=== PATIENT | female | born 1960 | race Caucasian/White ===

== ENCOUNTER → 2016-09-08 | Outpatient (REF) | payer BC ==
[~2016-09-08] MED LIST: ALBU17IN INH; IBUP200T45 PO
[2016-09-08 14:44] LABS: ANION GAP 9 MEQ/L (8-16); BLOOD UREA NITROGEN 11 MG/DL (7-18); CALCIUM LEVEL 8.7 MG/DL (8.5-10.1); CARBON DIOXIDE LEVEL 29 MEQ/L (21-32); CHLORIDE LEVEL 105 MEQ/L (98-107); CREATININE FOR GFR 0.84 MG/DL (0.55-1.02); GLOMERULAR FILTRATION RATE > 60.0 (>51); GLUCOSE, FASTING 130 MG/DL (70-105); SODIUM LEVEL 143 MEQ/L (136-145)
== END ==
LOC: M LAB REF 14:04
PROVIDERS: ATTEND Internal Medicine Cardiovascular Disease
DX: I10 Essential (primary) hypertension (principal); Z79.899 Other long term (current) drug therapy

== ENCOUNTER → 2017-03-26 | Outpatient (REF) | payer BC ==
[2017-03-26 12:17] LABS: ANION GAP 6 MEQ/L (8-16); BLOOD UREA NITROGEN 15 MG/DL (7-18); CALCIUM LEVEL 8.9 MG/DL (8.5-10.1); CARBON DIOXIDE LEVEL 29 MEQ/L (21-32); CHLORIDE LEVEL 105 MEQ/L (98-107); CREATININE FOR GFR 0.75 MG/DL (0.55-1.02); GLOMERULAR FILTRATION RATE > 60.0 (>51); GLUCOSE, FASTING 79 MG/DL (70-105); POTASSIUM SERUM 4.8 MEQ/L (3.5-5.1); SODIUM LEVEL 140 MEQ/L (136-145)
== END ==
LOC: M LABDRAW1 11:03
PROVIDERS: ATTEND Physician Assistant Medical
DX: R73.9 Hyperglycemia, unspecified (principal)

== ENCOUNTER → 2017-07-24 | Outpatient (REF) | payer BC | LOC: M LAB REF 13:16 | PROVIDERS: ATTEND Physician Assistant Medical | DX: R73.9 Hyperglycemia, unspecified (principal) ==

== ENCOUNTER → 2018-07-02 | Outpatient (REF) | payer BC | LOC: M LAB REF 15:40 | DX: J02.9 Acute pharyngitis, unspecified (principal) ==

== ENCOUNTER 2018-08-31 08:32 | Emergency (ER) | payer BC ==
[~2018-08-31] VITALS: Ht 162.6 cm; Wt 88.6 kg
[2018-08-31] MEDS ORDERED: LOSA25TA14 (08:45)
[2018-08-31 09:22] LABS: BASO # 0.1 10^3/uL (0.0-0.2); BASO % 0.5 % (0.0-1.0); EOS # 0.1 10^3/uL (0.0-0.50); EOS % 0.6 % (0.0-3.0); HEMATOCRIT 42.7 % (36.0-47.0); HEMOGLOBIN 14.3 g/dl (12.0-15.5); LYMPH # 1.6 10^3/uL (1.5-4.5); LYMPH % 15.1 % (24.0-44.0); MEAN CORPUSCULAR HEMOGLOBIN 30.1 pg (27.0-33.0); MEAN CORPUSCULAR HGB CONC 33.5 g/dl (32.0-36.5); MEAN CORPUSCULAR VOLUME 89.9 fl (80.0-96.0); MONO # 0.7 10^3/uL (0.0-0.8); MONO % 6.2 % (0.0-5.0); NEUTROPHILS # 8.4 10^3/uL (1.8-7.7); NEUTROPHILS % 77.2 % (36.0-66.0); PLATELET COUNT, AUTOMATED 306 10^3/uL (150-450); RED BLOOD COUNT 4.75 10^6/uL (4.00-5.40); WHITE BLOOD COUNT 10.9 10^3/uL (4.0-10.0)
--- NOTE | 2018-08-31 09:36 | REP ---
CT Head without contrast HISTORY: Visual change COMPARISON: None There is no intraparenchymal hemorrhage, acute infarct, mass or midline shift. The ventricular system is normal in appearance. There is no extra cerebral collection. There is no fracture. The visualized sinuses are clear. IMPRESSION: There is no intracranial lesion. Electronically Signed by Jeb Goncalves MD 08/31/2018 09:28 A
[2018-08-31 09:45] VITALS: BP 147/76
[2018-08-31] MEDS ORDERED: KETOROLAC 30 MG/ML VIAL (J1885) IV ONE (09:45)
[2018-08-31 09:51] LABS: CK-MB VALUE MASS < 1.0 NG/ML (<3.6); CPK CREATINE PHOSPHOKINASE 52 U/L (26-192); MB/CK RELATIVE INDEX 1.92 (< OR =4); TROPONIN I < 0.02 NG/ML (< 0.10)
[2018-08-31 09:52] LABS: ALBUMIN 3.8 GM/DL (3.2-5.2); ALT/SGPT 20 U/L (12-78); BILIRUBIN,TOTAL 0.3 MG/DL (0.2-1.0); BLOOD UREA NITROGEN 9 MG/DL (7-18); CALCIUM LEVEL 8.8 MG/DL (8.5-10.1); CARBON DIOXIDE LEVEL 27 MEQ/L (21-32); CHLORIDE LEVEL 105 MEQ/L (98-107); CREATININE FOR GFR 0.73 MG/DL (0.55-1.30); GLOMERULAR FILTRATION RATE > 60.0 (>51); GLUCOSE, FASTING 94 MG/DL (70-100); POTASSIUM SERUM 4.4 MEQ/L (3.5-5.1); SODIUM LEVEL 138 MEQ/L (136-145); TOTAL PROTEIN 6.9 GM/DL (6.4-8.2)
[2018-08-31 11:10] LABS: APPEARANCE, URINE CLEAR (CLEAR); BACTERIA, URINE AUTO NEGATIVE (NEGATIVE); BILIRUBIN, URINE AUTO NEGATIVE (NEGATIVE); BLOOD, URINE BLOOD NEGATIVE (NEGATIVE); COLOR, URINE YELLOW (YELLOW); GLUCOSE, URINE (UA) AUTO NEGATIVE (NEGATIVE); KETONE, URINE AUTO NEGATIVE (NEGATIVE); LEUKOCYTE ESTERASE, URINE AUTO NEGATIVE (NEGATIVE); MUCUS, URINE SMALL (NEGATIVE); NITRITE, URINE AUTO NEGATIVE (NEGATIVE); PROTEIN, URINE AUTO NEGATIVE (NEGATIVE); RBC, URINE AUTO 2 /HPF (0-3); SPECIFIC GRAVITY URINE AUTO 1.011 (1.002-1.035); SQUAMOUS EPITHELIAL CELL UR AU 1 /HPF (0-6); UROBILINOGEN, URINE AUTO 0.2 mg/dL (0.0-2.0); WBC, URINE AUTO 0 /HPF (0-3)
--- NOTE | 2018-08-31 18:35 | ECGEPIP ---
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
== END 2018-08-31 10:49 | disposition home or self-care (01) ==
LOC: M ED 08:32
DX: G43.109 Migraine with aura, not intractable, without status migrainosus (principal); I10 Essential (primary) hypertension; J44.9 Chronic obstructive pulmonary disease, unspecified; F17.210 Nicotine dependence, cigarettes, uncomplicated; Z79.899 Other long term (current) drug therapy
CPT/HCPCS: 36415; 70450; 80053; 81001; 82550; 82553; 84484; 85025; 93005; 96374; 99284; J1885

== ENCOUNTER → 2018-11-03 | Outpatient (CLI) | payer BC ==
[~2018-11-03] MED LIST changes: +LOSA25TA14
--- NOTE | 2018-11-03 18:43 | REP ---
Clinical: Amaurosis fugax. Technique: Kaye scale and color Doppler evaluation using linear high frequency transducer Findings: Two-dimensional kaye scale and color images demonstrate smooth intimal thickening along the bilateral common carotid arteries extending through the visualized internal and external carotid arteries. Small focus of calcified plaque identified at the left carotid bulb without significant stenosis. Color Doppler interrogation demonstrates normal arterial wave patterns and velocities with scattered spectral broadening. Normal flow direction is appreciated in the bilateral vertebral arteries. RIGHT (cm/s) LEFT (cm/s) ICA peak systolic velocity 106 119 ICA diastolic velocity 32.9 47.8 ECA peak systolic velocity 122 122 CCA peak systolic velocity 124 132 ICA/CCA ratio 0.85 0.90 Impression: No hemodynamically significant areas of narrowing or stenosis appreciated. Based on set standards narrowing falls within the less than 50% range. Electronically Signed by Hector Blackmon MD 11/03/2018 06:34 P
== END ==
LOC: M RAD 15:41
PROVIDERS: ATTEND Internal Medicine Cardiovascular Disease
DX: H53.8 Other visual disturbances (principal)

== ENCOUNTER → 2019-10-05 | Outpatient (CLI) | payer BC ==
--- NOTE | 2019-10-05 11:12 | REP ---
Clinical: Acute bronchitis . Comparison: 09/05/2014 . Technique: PA and lateral. Findings: The mediastinum and cardiac silhouette are normal. The lung hunt are clear and without acute consolidation, effusion, or pneumothorax. The skeletal structures are intact and normal. Impression: 1. No acute cardiopulmonary process. Electronically Signed by Hector Blackmon MD 10/05/2019 11:04 A
== END ==
LOC: M LAB 10:27 → M RAD 10:27
PROVIDERS: ATTEND Physician Assistant
DX: J20.9 Acute bronchitis, unspecified (principal)

== ENCOUNTER → 2020-03-13 | Outpatient (REF) | payer BC | LOC: M SFHCWAGY 09:31 | PROVIDERS: ATTEND Nurse Practitioner Women's Health | DX: Z12.72 Encounter for screening for malignant neoplasm of vagina (principal) | CPT/HCPCS: 87624; G0123 ==

== ENCOUNTER → 2020-04-11 | Outpatient (CLI) | payer BC ==
--- NOTE | 2020-05-03 10:41 | REPMRS ---
Patient History The patient states she had a clinical breast exam in February 2020. Patient is postmenopausal. Family history of ovarian cancer at age 38 in daughter. Digital Woman Screen Mammo: April 11, 2020 - Exam #: [id number] Bilateral CC and MLO view(s) were taken. Technologist: Lillie Chacon, Technologist No prior studies available for comparison. FINDINGS: There are scattered fibroglandular densities. The Volpara volumetric breast density category is: B. There is no evidence of dominant mass, architectural distortion, or grouped microcalcification typical of malignancy. 3-D tomosynthesis shows no additional findings. Assessment: BI-RADS/ACR category 1 mammogram. Negative Mammogram. Recommendation Routine screening mammogram of both breasts in 1 year (for women over age 40). This patient's Lifetime Breast Cancer RIsk is estimated at 5.2 %. This mammogram was interpreted with the aid of an FDA-approved computer-aided dectection system. Electronically Signed By: Juan Daniel MD 05/03/20 [id number]
== END ==
LOC: M WHC 09:33
PROVIDERS: ATTEND Nurse Practitioner Women's Health
DX: Z12.31 Encounter for screening mammogram for malignant neoplasm of breast (principal); Z78.0 Asymptomatic menopausal state; Z80.41 Family history of malignant neoplasm of ovary

== ENCOUNTER → 2020-06-15 | Outpatient (CLI) | payer BC ==
[2020-06-15 09:15] LABS: ALBUMIN 3.7 GM/DL (3.2-5.2); ALT/SGPT 17 U/L (12-78); AMYLASE 80 U/L (25-115); BILIRUBIN,TOTAL 0.4 MG/DL (0.2-1.0); BLOOD UREA NITROGEN 13 MG/DL (7-18); CALCIUM LEVEL 8.7 MG/DL (8.5-10.1); CARBON DIOXIDE LEVEL 30 MEQ/L (21-32); CHLORIDE LEVEL 106 MEQ/L (98-107); CREATININE FOR GFR 0.78 MG/DL (0.55-1.30); FERRITIN 88 NG/ML (8-252); FREE T4 1.11 NG/DL (0.76-1.46); GLOMERULAR FILTRATION RATE > 60.0 (>51); GLUCOSE, FASTING 81 MG/DL (70-100); IRON (FE) 113 UG/DL (50-170); LIPASE 211 U/L (73-393); NT-PRO BNP 47 PG/ML (<125); PERCENT SATURATION 35.1 % (13.2-45.0); POTASSIUM SERUM 4.7 MEQ/L (3.5-5.1); SODIUM LEVEL 139 MEQ/L (136-145); TOTAL IRON BINDING CAPACITY 322 UG/DL (250-450); TOTAL PROTEIN 6.9 GM/DL (6.4-8.2)
== END ==
LOC: M LAB 08:12
PROVIDERS: ATTEND Family Medicine
DX: R53.83 Other fatigue (principal); R06.02 Shortness of breath; R13.19 Other dysphagia

== ENCOUNTER → 2020-06-21 | Outpatient (CLI) | payer BC ==
[~2020-06-21] MED LIST changes: +ISOVUE-370 76% 100ML VIAL As Ordered ONE
--- NOTE | 2020-06-23 12:56 | REP ---
INDICATION: DYSPNEA, ABN WT LOSS, ELEV D-DIMER COMPARISON: None. TECHNIQUE: Axial contrast enhanced images from the thoracic inlet to the upper abdomen using pulmonary embolus technique with multiplanar re-formations. 75 ml Isovue 370 intravenous contrast material administered without complication. This CT examination was performed using the following dose reduction techniques: Automated exposure control, adjustment of mA and/or kv according to the patient's size, and use of iterative reconstruction technique. FINDINGS: Satisfactory enhancement of the pulmonary vasculature is achieved and no filling defects are identified to suggest pulmonary embolus. Further evaluation of the mediastinum demonstrates normal thoracic aorta, heart and pericardium. The bilateral lung hunt are well aerated and essentially clear. There is a small area of subpleural fibrosis along the posterior aspect of the left apex which may reflect chronic change. No acute consolidation, significant nodule or mass lesion. No pleural effusion. No pneumothorax. Tracheobronchial tree is patent. No adenopathy noted. Limited upper abdomen demonstrates normal bilateral adrenal glands and evidence for prior cholecystectomy. Musculoskeletal structures are intact and without focal osseous abnormality. IMPRESSION: 1. No evidence for pulmonary embolus. 2. 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 3. No further acute mediastinal or pleuroparenchymal process appreciated. <Electronically signed by Hector Blackmon > 06/23/20 [id number]
== END ==
LOC: M RAD 15:57
PROVIDERS: ATTEND Family Medicine
DX: R63.4 Abnormal weight loss (principal); R53.83 Other fatigue; Z79.82 Long term (current) use of aspirin
CPT/HCPCS: 71275; Q9967

== ENCOUNTER 2020-09-18 12:26 | Emergency (ER) | payer BC ==
[~2020-09-18] VITALS: Ht 162.6 cm; Wt 77.8 kg
[~2020-09-18 12:26] MED LIST changes: -ISOVUE-370 76% 100ML VIAL As Ordered ONE
[2020-09-18] MEDS ORDERED: LOSA50TA88 (12:36)
[2020-09-18] MEDS ORDERED: CLOP75TA2 (12:36)
[2020-09-18] MEDS ORDERED: ALBU8.5H (12:36)
[2020-09-18] MEDS ORDERED: BREO1INH (12:36)
[2020-09-18] MEDS ORDERED: HYDR12.55 (12:36)
[2020-09-18 13:36] LABS: BASO # 0.1 10^3/uL (0.0-0.2); BASO % 0.8 % (0.0-1.0); EOS # 0.2 10^3/uL (0.0-0.5); EOS % 1.3 % (0.0-3.0); HEMATOCRIT 42.7 % (36.0-47.0); HEMOGLOBIN 13.9 g/dl (12.0-15.5); LYMPH # 2.3 10^3/uL (1.5-5.0); LYMPH % 17.5 % (24.0-44.0); MEAN CORPUSCULAR HEMOGLOBIN 30.2 pg (27.0-33.0); MEAN CORPUSCULAR HGB CONC 32.6 g/dl (32.0-36.5); MEAN CORPUSCULAR VOLUME 92.6 fl (80.0-96.0); MONO # 1.1 10^3/uL (0.0-0.8); MONO % 8.6 % (0.0-5.0); NEUTROPHILS # 9.2 10^3/uL (1.5-8.5); NEUTROPHILS % 71.4 % (36.0-66.0); PLATELET COUNT, AUTOMATED 291 10^3/uL (150-450); RED BLOOD COUNT 4.61 10^6/uL (4.00-5.40); WHITE BLOOD COUNT 12.8 10^3/uL (4.0-10.0)
[2020-09-18 13:53] LABS: INR 0.95; PROTHROMBIN TIME 12.9 SECONDS (12.5-14.3)
[2020-09-18 13:54] LABS: PARTIAL THROMBOPLASTIN TIME 33.7 SECONDS (24.2-38.5)
[2020-09-18 14:05] LABS: ALBUMIN 3.9 GM/DL (3.2-5.2); ALT/SGPT 17 U/L (12-78); BILIRUBIN,DIRECT 0.1 MG/DL (0.0-0.2); BILIRUBIN,TOTAL 0.4 MG/DL (0.2-1.0); CK-MB VALUE MASS < 1.0 NG/ML (<3.6); CPK CREATINE PHOSPHOKINASE 52 U/L (26-192); LIPASE 168 U/L (73-393); MB/CK RELATIVE INDEX 1.92 (< OR =4); NT-PRO BNP 75 PG/ML (<125); TOTAL PROTEIN 7.3 GM/DL (6.4-8.2); TROPONIN I < 0.02 NG/ML (< 0.10)
[2020-09-18] MEDS ORDERED: ISOVUE-370 76% 100ML VIAL As Ordered ONE (14:10)
--- NOTE | 2020-09-18 14:49 | REP ---
INDICATION: pain in back with inspiration/SOB. COMPARISON: Comparison CT pulmonary angiogram June 21, 2020.. TECHNIQUE: Contrast dose: 100 ML of Isovue [address] technique: Helical scanning is acquired and overlapping 1.5 mm and contiguous 3 mm axial images are reformatted. In addition, maximum intensity projection and multiplanar re-formation images are generated in sagittal and coronal imaging projections. FINDINGS: There is good opacification in the pulmonary arterial tree. There is no evidence of vessel cut off or filling defect to suggest pulmonary embolus. Homogeneous opacity is seen in the thoracic aorta. There is no evidence of aneurysm or dissection. Lung window settings demonstrate no evidence of infiltrate, mass, or significant atelectasis. No pleural or pericardial effusion is seen. No hilar or mediastinal mass or adenopathy is observed. In the upper abdomen, normal adrenal glands are observed bilaterally. Post cholecystectomy clips are seen. Visualized upper abdominal structures are otherwise unremarkable. IMPRESSION: No CT evidence of pulmonary embolus. No active cardiopulmonary disease. <Electronically signed by Juan Daniel > 09/18/20 [id number]
[2020-09-18 15:26] VITALS: BP 137/72
--- NOTE | 2020-09-19 14:41 | ECGEPIP ---
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
== END 2020-09-18 15:28 | disposition home or self-care (01) ==
LOC: M ED 12:26
DX: M54.9 Dorsalgia, unspecified (principal); I10 Essential (primary) hypertension; J44.9 Chronic obstructive pulmonary disease, unspecified; F17.210 Nicotine dependence, cigarettes, uncomplicated; Z79.51 Long term (current) use of inhaled steroids; Z79.899 Other long term (current) drug therapy
CPT/HCPCS: 71275; 80047; 80076; 82550; 82553; 83690; 83880; 84484; 85025; 85610; 85730; 93005; 99284; Q9967

== ENCOUNTER → 2020-10-31 | Outpatient (CLI) | payer BC ==
[~2020-10-31] MED LIST changes: +ALBU8.5H; +BREO1INH; +CLOP75TA2; +HYDR12.55; +LOSA50TA88
[2020-10-31 13:21] LABS: BLOOD UREA NITROGEN 13 MG/DL (7-18); GLOMERULAR FILTRATION RATE > 60.0 (>45)
== END ==
LOC: M LAB 11:13
PROVIDERS: ATTEND Psychiatry & Neurology Neurology
DX: I10 Essential (primary) hypertension (principal)

== ENCOUNTER → 2021-05-02 | Outpatient (REF) | LOC: M LABSMTC 09:14 | PROVIDERS: ATTEND Pediatrics | DX: Z11.52 Encounter for screening for COVID-19 (principal) ==

== ENCOUNTER → 2021-08-27 | Outpatient (REF) ==
[~2021-08-27] MED LIST changes: -IBUP200T45 PO; +IBUP200T46 PO
== END ==
LOC: M EMP 13:01
PROVIDERS: ATTEND Family Medicine
DX: Z20.822 Contact with and (suspected) exposure to COVID-19 (principal)

== ENCOUNTER → 2021-08-29 | Outpatient (REF) | LOC: M LABSMTC 11:01 | PROVIDERS: ATTEND Pediatrics | DX: Z11.52 Encounter for screening for COVID-19 (principal); Z20.822 Contact with and (suspected) exposure to COVID-19 ==

== ENCOUNTER → 2021-08-31 | Outpatient (REF) ==
[~2021-08-31] MED LIST changes: +LOSA25TA13; -LOSA25TA14; +LOSA50TA28; -LOSA50TA88
== END ==
LOC: M LABSMTC 10:34
PROVIDERS: ATTEND Family Medicine
DX: Z11.52 Encounter for screening for COVID-19 (principal); Z20.822 Contact with and (suspected) exposure to COVID-19

== ENCOUNTER → 2021-10-04 | Outpatient (REF) | LOC: M LABSMTC 10:12 | PROVIDERS: ATTEND Pediatrics | DX: Z11.52 Encounter for screening for COVID-19 (principal); Z20.822 Contact with and (suspected) exposure to COVID-19 ==

== ENCOUNTER → 2022-03-06 | Outpatient (CLI) | payer BC | LOC: M RAD 08:36 | PROVIDERS: ATTEND Nurse Practitioner Adult Health | DX: M25.562 Pain in left knee (principal) ==

== ENCOUNTER → 2022-05-13 | Outpatient (REF) | LOC: M EMP 10:44 | PROVIDERS: ATTEND Family Medicine | DX: Z20.822 Contact with and (suspected) exposure to COVID-19 (principal) ==

== ENCOUNTER → 2022-07-03 | Outpatient (CLI) | payer BC | LOC: M ADAMS 14:05 | PROVIDERS: ATTEND Nurse Practitioner Adult Health | DX: M54.16 Radiculopathy, lumbar region (principal) ==

== ENCOUNTER → 2022-08-08 | Outpatient (REF) ==
[2022-08-08 13:58] LABS: RSV AMPLIFICATION NEGATIVE (NEGATIVE)
== END ==
LOC: M EMP 11:42
PROVIDERS: ATTEND Family Medicine
DX: Z20.818 Contact with and (suspected) exposure to other bacterial communicable diseases (principal)

== ENCOUNTER → 2023-03-04 | Outpatient (CLI) | payer BC | LOC: M WUC 13:10 | PROVIDERS: ATTEND Nurse Practitioner Family | DX: J44.1 Chronic obstructive pulmonary disease with (acute) exacerbation (principal) ==

== ENCOUNTER → 2023-06-17 | Outpatient (REF) ==
[2023-06-17 11:59] LABS: RSV AMPLIFICATION NEGATIVE (NEGATIVE)
== END ==
LOC: M EMP 10:26
PROVIDERS: ATTEND Family Medicine
DX: Z20.828 Contact with and (suspected) exposure to other viral communicable diseases (principal)

== ENCOUNTER → 2023-07-20 | Outpatient (CLI) | payer BC ==
[~2023-07-20] MED LIST changes: +ISOVUE-370 76% 100ML VIAL As Ordered ONE
== END ==
LOC: M RAD 14:20
PROVIDERS: ATTEND Nurse Practitioner Adult Health
DX: J44.9 Chronic obstructive pulmonary disease, unspecified (principal); R06.02 Shortness of breath; R49.0 Dysphonia; F17.210 Nicotine dependence, cigarettes, uncomplicated
CPT/HCPCS: 71260; 87070; Q9967

== ENCOUNTER → 2023-07-21 | Outpatient (REF) | payer BC ==
[~2023-07-21] MED LIST changes: -ISOVUE-370 76% 100ML VIAL As Ordered ONE
[2023-07-21 10:02] LABS: BASO # 0.1 10^3/uL (0.0-0.2); BASO % 0.8 % (0.0-1.0); EOS # 0.2 10^3/uL (0.0-0.5); EOS % 1.6 % (0.0-3.0); HEMATOCRIT 41.5 % (36.0-47.0); HEMOGLOBIN 13.6 g/dl (12.0-15.5); LYMPH # 1.9 10^3/uL (1.5-5.0); LYMPH % 17.9 % (24.0-44.0); MEAN CORPUSCULAR HEMOGLOBIN 30.2 pg (27.0-33.0); MEAN CORPUSCULAR HGB CONC 32.8 g/dl (32.0-36.5); MEAN CORPUSCULAR VOLUME 92.2 fl (80.0-96.0); MONO # 0.9 10^3/uL (0.0-0.8); NEUTROPHILS # 7.6 10^3/uL (1.5-8.5); NEUTROPHILS % 71.3 % (36.0-66.0); PLATELET COUNT, AUTOMATED 333 10^3/uL (150-450); WHITE BLOOD COUNT 10.7 10^3/uL (4.0-10.0)
[2023-07-21 10:08] LABS: ERYTHROCYTE SEDIMENTATION RATE 32 mm/hr (0-30)
[2023-07-21 10:26] LABS: CK-MB VALUE MASS < 1.0 NG/ML (<3.6)
[2023-07-21 10:28] LABS: ALBUMIN 3.7 G/DL (3.2-5.2); ALKALINE PHOSPHATASE 83 U/L (46-116); ALT/SGPT 17 U/L (7.0-40); AST/SGOT 15 U/L (<34); BILIRUBIN,TOTAL 0.4 MG/DL (0.3-1.2); BLOOD UREA NITROGEN 13 MG/DL (9-23); CALCIUM LEVEL 8.9 MG/DL (8.3-10.6); CARBON DIOXIDE LEVEL 28 MMOL/L (20-31); CHLORIDE LEVEL 102 MMOL/L (98-107); CHOLESTEROL LEVEL 197 MG/DL (<200); CHOLESTEROL RISK RATIO 2.85 (<5); CPK CREATINE PHOSPHOKINASE 69 U/L (34-145); CREATININE FOR GFR 0.77 MG/DL (0.55-1.30); GLOMERULAR FILTRATION RATE > 60.0 (>45); GLUCOSE, FASTING 95 MG/DL (74-106); HDL CHOLESTEROL 69.1 MG/DL (>40); IRON (FE) 64 UG/DL (50-170); LDL CHOLESTEROL 107.1 MG/DL (<100); MB/CK RELATIVE INDEX 1.44 (< OR =4); NON-HDL-C 127.9 MG/DL; PERCENT SATURATION 21.1 % (13.2-45.0); POTASSIUM SERUM 4.3 MMOL/L (3.5-5.1); SODIUM LEVEL 138 MMOL/L (136-145); TOTAL IRON BINDING CAPACITY 303 UG/DL (250-425); TOTAL PROTEIN 6.9 G/DL (5.7-8.2); TRIGLYCERIDES LEVEL 104 MG/DL (<150)
[2023-07-21 10:29] LABS: FOLATE > 24.0 NG/ML (>5.4); THYROID STIMULATING HORMONE 2.338 uIU/ML (0.55-4.78)
[2023-07-21 10:30] LABS: FREE T4 1.17 NG/DL (0.89-1.76); VITAMIN B12 LEVEL 358 PG/ML (211-911)
== END ==
LOC: M LAB REF 08:52
PROVIDERS: ATTEND Nurse Practitioner Adult Health
DX: R06.02 Shortness of breath (principal); I10 Essential (primary) hypertension; I65.02 Occlusion and stenosis of left vertebral artery

== ENCOUNTER → 2023-09-07 | Outpatient (CLI) | payer BC ==
[~2023-09-07] MED LIST changes: +ISOVUE-370 76% 100ML VIAL As Ordered ONE
== END ==
LOC: M RAD 07:48
PROVIDERS: ATTEND Nurse Practitioner Adult Health
DX: R91.8 Other nonspecific abnormal finding of lung field (principal)
CPT/HCPCS: 71260; Q9967

== ENCOUNTER → 2023-11-09 | Outpatient (CLI) | payer BC ==
[~2023-11-09] MED LIST changes: -ISOVUE-370 76% 100ML VIAL As Ordered ONE
== END ==
LOC: M CARPUL 10:48
PROVIDERS: ATTEND Nurse Practitioner Adult Health
DX: J44.9 Chronic obstructive pulmonary disease, unspecified (principal)

== ENCOUNTER → 2023-11-11 | Outpatient (REF) | LOC: M EMP 09:36 | PROVIDERS: ATTEND Family Medicine | DX: Z11.52 Encounter for screening for COVID-19 (principal) ==

== ENCOUNTER → 2024-09-09 | Outpatient (CLI) | payer BC | LOC: M RAD 10:32 | PROVIDERS: ATTEND Nurse Practitioner Adult Health | DX: Z12.2 Encounter for screening for malignant neoplasm of respiratory organs (principal); F17.210 Nicotine dependence, cigarettes, uncomplicated ==

== ENCOUNTER → 2024-10-07 | Outpatient (CLI) | payer BC | LOC: M CARPUL 16:40 | PROVIDERS: ATTEND Family Medicine | DX: R01.1 Cardiac murmur, unspecified (principal); I50.30 Unspecified diastolic (congestive) heart failure; I35.0 Nonrheumatic aortic (valve) stenosis; I08.0 Rheumatic disorders of both mitral and aortic valves; I37.1 Nonrheumatic pulmonary valve insufficiency ==

== ENCOUNTER → 2024-12-13 | Outpatient (CLI) | payer BC ==
[2024-12-13 13:09] LABS: BASO # 0.1 10^3/uL (0.0-0.2); BASO % 0.7 % (0.0-1.0); EOS # 0.2 10^3/uL (0.0-0.5); EOS % 1.4 % (0.0-3.0); HEMATOCRIT 43.7 % (36.0-47.0); HEMOGLOBIN 14.1 g/dl (12.0-15.5); LYMPH % 22.6 % (24.0-44.0); MEAN CORPUSCULAR HEMOGLOBIN 30.2 pg (27.0-33.0); MEAN CORPUSCULAR HGB CONC 32.3 g/dl (32.0-36.5); MEAN CORPUSCULAR VOLUME 93.6 fl (80.0-96.0); MONO # 0.9 10^3/uL (0.0-0.8); MONO % 6.6 % (2.0-8.0); NEUTROPHILS # 9.1 10^3/uL (1.5-8.5); NEUTROPHILS % 67.8 % (36.0-66.0); PLATELET COUNT, AUTOMATED 382 10^3/uL (150-450); RED BLOOD COUNT 4.67 10^6/uL (4.00-5.40); WHITE BLOOD COUNT 13.4 10^3/uL (4.0-10.0)
[2024-12-13 13:15] LABS: ERYTHROCYTE SEDIMENTATION RATE 18 mm/hr (0-30)
== END ==
LOC: M RAD 11:54
PROVIDERS: ATTEND Nurse Practitioner Adult Health
DX: J20.9 Acute bronchitis, unspecified (principal); R19.7 Diarrhea, unspecified